=== PATIENT | male | born 1990 | race Caucasian/White ===

== ENCOUNTER 2021-04-20 09:11 | Day surgery (SDC) | payer BC ==
[~2021-04-20 09:11] MED LIST: Lactated Ringers 1,000 ML IV SCH
--- NOTE | 2021-04-20 09:45 | PCM.PREANE ---
Preanesthetic Assessment - Procedure Proposed Procedure: EGD/Colonoscopy - Anesthesia/Transfusion/Family Hx Anesthesia History: Prior Anesthesia Without Reaction Transfusion History: No Prior Transfusion(s) - Review of Systems General: No Symptoms Pulmonary: No Symptoms Cardiovascular: No Symptoms Gastrointestinal: No Symptoms Neurological: No Symptoms Other: Reports: None - Physical Assessment NPO Status Date: 04/19/21 NPO Status Time: 22:00 Vital Signs: Last Vital Signs Temp 97.3 F 04/20/21 09:20 Pulse 85 04/20/21 09:20 Resp 15 04/20/21 09:20 BP 121/70 04/20/21 09:20 Pulse Ox 96 04/20/21 09:20 Height: 6 ft Weight: 94.347 kg ASA Class: 1 Mental Status: Alert & Oriented x3 Airway Class: Mallampati = 2 Dentition: Reports: Normal Dentition Thyro-Mental Finger Breadths: 3 Mouth Opening Finger Breadths: 3 ROM/Head Extension: Full Lungs: Clear to Auscultation, Normal Respiratory Effort Cardiovascular: Regular Rate, Regular Rhythm - Allergies Allergies/Adverse Reactions: Allergies Allergy/AdvReac Type Severity Reaction Status Date / Time No Known Allergies Allergy Verified 04/15/21 09:15 - Acknowledgements Anesthesia Type Planned: General Anesthesia Pt an Appropriate Candidate for the Planned Anesthesia: Yes Alternatives and Risks of Anesthesia Discussed w Pt/Guardian: Yes Pt/Guardian Understands and Agrees with Anesthesia Plan: Yes PreAnesthesia Questionnaire Cardiovascular History: Reports: None Respiratory History: Reports: None Gastrointestinal History: Reports: Other (See Below) Other Gastrointestinal History: hx of abdominal pain and rectal bleeding Genitourinary History: Reports: None Musculoskeletal History: Reports: Fracture Other Musculoskeletal History: hx of fx wrists Neurological History: Reports: None Psychiatric History: Reports: None Endocrine/Metabolic History: Reports: None Hematologic History: Reports: None Immunologic History: Reports: None Oncologic (Cancer) History: Reports: None Dermatologic History: Reports: None - Past Surgical History Head Surgeries/Procedures: Reports: None HEENT Surgical History: Reports: LASIK, Oral Surgery Other HEENT Surgeries/Procedures: excision of wisdom teeth - SUBSTANCE USE Tobacco Use Status *Q: Never Tobacco User Recreational Drug Use History: Yes - HOME MEDS Home Medications: Home Meds . [No Known Home Meds] 04/15/21 [History] - CURRENT (IN HOUSE) MEDS Current Meds: Current Medications Lactated Ringer's (Ringers, Lactated) 1,000 mls @ 125 mls/hr IV ASDIRECTED [facility] Last Admin: 04/20/21 09:36 Dose: 125 mls/hr Documented by:
[2021-04-20] MEDS ORDERED: propofoL 50 ML ONE (09:51)
[2021-04-20] MEDS ORDERED: Benzocaine 20% Topical Spray UD ONE (10:33)
[2021-04-20] MEDS ORDERED: fentaNYL 100 MCG/2 ML SDV ONE (10:33)
[2021-04-20] MEDS ORDERED: Propofol 200 MG/20 ML SDV ONE (10:53)
--- NOTE | 2021-04-20 11:57 | PCM.POSTAN ---
POST ANESTHESIA ASSESSMENT - MENTAL STATUS Mental Status: Alert, Oriented - VITAL SIGNS Vital Signs: Last Vital Signs Temp 97.3 F 04/20/21 09:20 Pulse 85 04/20/21 09:20 Resp 15 04/20/21 09:20 BP 121/70 04/20/21 09:20 Pulse Ox 96 04/20/21 09:20 - RESPIRATORY Respiratory Status: Respiratory Rate WNL, Airway Patent, O2 Saturation Stable - CARDIOVASCULAR CV Status: Pulse Rate WNL, Blood Pressure Stable - GASTROINTESTINAL GI Status: No Symptoms - POST OP HYDRATION Hydration Status: Adequate & Stable
--- NOTE | 2021-04-20 11:57 | PCM48HPAN ---
Post Anesthesia Note - EVALUATION WITHIN 48HRS OF ANESTHETIC Vital Signs in Normal Range: Yes Patient Participated in Evaluation: Yes Respiratory Function Stable: Yes Airway Patent: Yes Cardiovascular Function Stable: Yes Hydration Status Stable: Yes Pain Control Satisfactory: Yes Nausea and Vomiting Control Satisfactory: Yes Mental Status Recovered: Yes Vital Signs: Last Vital Signs Temp 97.3 F 04/20/21 09:20 Pulse 85 04/20/21 09:20 Resp 15 04/20/21 09:20 BP 121/70 04/20/21 09:20 Pulse Ox 96 04/20/21 09:20
--- NOTE | 2021-04-20 11:57 | PCM.OPNOTE ---
- General Post-Op/Procedure Note Date of Surgery/Procedure: 04/20/21 Operative Procedure(s): egd w bx. colonoscopy w bx Findings: see [id number] Pre Op Diagnosis: BRBPR and abd pain Post-Op Diagnosis: Same Anesthesia Technique: Moderate Sedation Primary Surgeon: Flo Morejon Pathology: bx gastric, could be ge junction as pt was coughing, and scope rapidly withdrawal sent Complications: None Condition: Good
--- NOTE | 2021-04-20 15:03 | OR ---
SURGEON: Flo Morejon MD DATE OF PROCEDURE: 04/20/2021 PREOPERATIVE DIAGNOSES: Bright red blood per rectum, abdominal pain. POSTOPERATIVE DIAGNOSES: Bright red blood per rectum, abdominal pain. PROCEDURES PERFORMED: 1. Esophagogastroduodenoscopy with biopsy. 2. Colonoscopy with biopsy. DESCRIPTION OF PROCEDURE: EGD: The patient was taken to the endoscopy room, and with the [employer] SOLUTIONS ANALYST, Diprivan was administered. A well-lubricated EGD scope was gently inserted through the oropharynx, down the esophagus, passing through the gastroesophageal junction, into the stomach. The mucosa was examined upon the passage. Any etiology will be noted. Once in the stomach, we continued to advance to the distal antrum, passed through the pylorus into the second portion of the duodenum. Again, the mucosa was examined for any abnormality and etiology. The scope was then retrieved back to the stomach and then retroflexed to look at the fundus of the stomach. If a biopsy was indicated, we will biopsy the antrum, body, and gastroesophageal junction. The air will be sucked out while the scope is retrieved to reduce the patient's discomfort. The patient tolerated the procedure well. There were no intraoperative complications. Dr. Morejon was present through the whole procedure. Prior to surgery, a time-out had been called, the patient identified, procedure identified and antibiotic administered. Colonoscopy with biopsy: The patient was taken to the endoscopy room. A time out was called, patient identified, and procedure identified. Diprivan was then administrated. Patient went from awake to sleep, hearing doctor talking or door closing is normal. Perineum inspection and digital examination were then performed. A well-lubricated colonoscope was gently inserted through the rectum, advanced past the rectosigmoid junction, the descending colon, splenic flexure, transverse colon, hepatic flexure, ascending colon, arrived to the cecum. Cecum was identified as dictated in the finding. Then the scope was carefully withdrawn while attention was paid to the mucosal surface for any abnormality. Air will be sucked out during the scope withdrawal. At the rectum, retroflexed to examine any rectal diseases, fistula or hemorrhoids. During mucosal examination, abnormality or polyp was noted; picture taken and biopsy performed. Patient tolerated procedure well. There were no intraoperative complications, and Dr. Morejon was present throughout the whole procedure. FINDINGS: EGD findings: 1. Patient is easily sedated with [employer] SOLUTIONS ANALYST and Diprivan, patient is soundly snoring. 2. Oropharynx and proximal esophagus are free of disease, stricture, inflammation. Distal esophagus at GE junction at 40 shows the Z-line shows some salmon-colored changes, suggests mild acid reflux. Stomach rugae are normal in appearance. Antrum looks fine. Duodenum looks grossly normal. Tried to attempt to retroflex to look at the fundus of the stomach. Patient at that time looked like some coughing and getting a little bit intermediate up. We quickly randomly biopsied one area and sucked out the gas while scope pulling out. During the whole study, there is no food, blood, or ulcer observed. The area of the biopsy could be in the GE junction, could be in the stomach, as I was doing it while patient was coughing. Colonoscopy findings: 1. Patient is easily sedated with [employer] SOLUTIONS ANALYST and Diprivan, patient is soundly snoring. 2. Bowel prep is average or a little bit below average. A lot of opaque yellow liquid stool coating the mucosa. Luckily, they were easy to be irrigated away and colon rather straightforward. Cecum is indicated by ileocecal fold, one-to-one indentation, appendiceal orifice, and ScopeGuide is pointing south. Mucosa examined upon scope pulling out with irrigation. Patient does not have diverticulosis, polyp, mass, growth, inflammation, stricture, AV malformation, bleeding, ulcer, none of those, and stool is yellow in color. Patient has mild internal hemorrhoids. No fissure or fistula observed. Random biopsies done for abdominal pain. Patient would benefit from repeat colonoscopy on a clinical basis, as patient is only 30 years old. ALBERT / RASHAWN /[id number]
== END 2021-04-20 12:45 | disposition home or self-care (01) ==
LOC: MW.SDS 09:11
PROVIDERS: ATTEND Surgery
DX: R19.5 Other fecal abnormalities (principal); R10.31 Right lower quadrant pain; Z98.890 Other specified postprocedural states
CPT/HCPCS: 43239; 45380; A9270; J2704; J3010; J7120; 00813